=== PATIENT | male | born 1990 | race Caucasian/White ===

== ENCOUNTER 2016-09-24 13:22 | Emergency (ER) | payer OTHER ==
[2016-09-24 13:31] VITALS: TEMP 97.9
--- NOTE | 2016-09-24 14:20 | EDPHY ---
HPI/HX/ROS/PE/MDM Narrative: CHIEF COMPLAINT: Neck and hip pain. HISTORY OF PRESENT ILLNESS: The patient is a 26-year-old male presenting with neck and hip pain. The patient reports he pops his joints compulsively, including hyper flexing, hyper extending his neck, popping his shoulders, elbows , and fingers. He stopped popping his neck 1 week ago this and is now concerned he has an injury to those areas. He feels a tight, pulling sensation in his right posterior neck. The patient is concerned he has a vertebral artery dissection. He has not had a headache, visual difficulties, double vision, speech or articulation issues, numbness or tingling in his upper extremities or lower extremities and not facial numbness. Pain in the lateral posterior right neck is aggravated with twisting or turning his head. The patient also pops his hips regularly and stopped this past week as well. He is able to ambulate without pain or difficulty. He is concerned there is further damage to his hips though he does not have any significant pain. REVIEW OF SYSTEMS: Aside from elements discussed in the HPI, a comprehensive 10-point review of systems was reviewed and is negative. PAST MEDICAL HISTORY: Anxiety. SOCIAL HISTORY: [employer] student. VITAL SIGNS: Reviewed by me; see NN. GENERAL: Well-developed, well-nourished, in no acute distress. Very anxious. HEENT: Head: Atraumatic, normocephalic. Face: Atraumatic. PERRL, EOMI, no nystagmus. Oropharynx: No trauma, normal occlusion. Neck: Nontender to palpation, no pain with range of motion, no adenopathy. No palpable tenderness. No bruit. CHEST: Nontender, no subcutaneous air palpable. LUNGS: Clear to auscultation bilaterally, breath sounds are equal. CARDIAC: Regular rate and rhythm, no rubs, murmurs or gallops. ABDOMEN: Soft, nontender, nondistended, bowel sounds normal. BACK: No CVA tenderness, no spinal tenderness. Pelvis is stable. Patient can click or pop hips voluntarily. EXTREMITIES: No trauma noted, normal range of motion. NEURO: Alert and oriented x3, cranial nerves are intact throughout, normal motor , normal sensation. Normal gait. SKIN: Warm and dry, no rash. ED Course: Discussed at length with the patient there is no evidence for vertebral artery dissection at this time. Patient has not had aggressive manipulation of his neck by another individual and has not "popped" his neck for 1 week. No neck pain currently. No neurological symptoms. Will Ct cervical spine to evaluate for chronic subluxations or evidence of injury. will also obtain pelvis xray to evaluate his hip joints. Patient has no neurological findings. CT cervical spine is normal. Hip x-ray is negative for fracture. Plan to discharge patient home. Discussed findings with patient at length. Provided follow up with ortho and PCP. Also encouraged PT followup. MDM: Differential diagnosis for the patient's injury was considered including but not limited to strain, sprain, overuse injury, stress fractures, subluxation. - Data Points Imaging Results: Imaging Impressions Cervical Spine CT 09/24/16 14:41 IMPRESSION: Secondary features suggestive of underlying muscle spasm, with no acute cervical osseous abnormality otherwise identified. If there is further clinical concern regarding the patient's symptoms, correlative MR imaging could be considered, if otherwise not contraindicated. Findings were discussed with Esthela Soni MD at 15:08, on 09/24/2016. Pelvis X-Ray 09/24/16 14:41 Impression: Normal. Imaging: Discussed imaging studies w/ molecular modeler Radiologist, I viewed and interpreted images myself General Time Seen by Provider: 09/24/16 14:00 Initial Vital Signs: Initial Vital Signs Temperature (C) 36.6 C 09/24/16 13:24 Heart Rate 91 09/24/16 13:24 Respiratory Rate 18 09/24/16 13:24 Blood Pressure 128/88 H 09/24/16 13:24 O2 Sat (%) 96 09/24/16 13:24 O2 Delivery Mode Room Air Allergies/Adverse Reactions: No Known Allergies Allergy (Unverified 09/24/16 13:30) Home Medications: Medication Instructions Recorded LAMOTRIGINE 1 each PO 09/24/16 Lisdexamfetamine Dimesylate 10 mg PO 09/24/16 [Vyvanse] Departure - Departure Disposition: Home, Routine, Self-Care Clinical Impression: Hip joint symptom Cervical strain Qualifiers: Encounter type: initial encounter Qualified Code(s): S16.1XXA - Strain of muscle, fascia and tendon at neck level, initial encounter Instructions: Cervical Strain (ED), Hip Pain (ED) Additional Instructions: 1. You have been referred to an Orthopedist and a Physical therapy group below. 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 2. The CT of your neck was normal today. I recommend you stop popping your neck. 3. I recommend Ibuprofen (Motrin, Advil) or Naproxen Sodium (Aleve) for pain and anti-inflammatory effects. You may take either one, but do not take both. Your dose is: Ibuprofen 600 mg every 6-8 hours with food. OR Naproxen Sodium (Aleve) 220 mg every 12 hours. 4. Return to the Emergency Department if you develop numbness or tingling in your extremities, facial numbness, or other concerns. Referrals: Jason Lomeli MD [Medical Doctor] - As per Instructions (Orthopedic surgery) [facility] [Provider Group] - As per Instructions (PT group. ) Stand Alone Forms: Work Excuse Report Scribed for: Esthela Soni Report Scribed by: Leonila Hernandez Date of Report: 09/24/16 Time of Report: 14:38 Physician Review and Approval Statement: Portions of this note were transcribed by a medical videographer. I personally performed a history, physical exam, medical decision making, and confirmed accuracy of information the transcribed note.
[2016-09-24 15:51] VITALS: BP 123/82; PULSE 69; RESP 16; O2SAT 95
== END 2016-09-24 15:54 | disposition home or self-care (01) ==
DX: S16.1XXA Strain of muscle, fascia and tendon at neck level, initial encounter (principal); S79.919A Unspecified injury of unspecified hip, initial encounter; X50.1XXA Overexertion from prolonged static or awkward postures, initial encounter